=== PATIENT | male | born 1995 | race Caucasian/White ===

== ENCOUNTER 2021-08-21 10:29 | Emergency (ER) | payer OTHER ==
[~2021-08-21] VITALS: Ht 172.7 cm; Wt 87.1 kg
[~2021-08-21 10:29] MED LIST: ASPI-1856 PO; [UNRECOGNIZED DRUG - CODE] PO
[2021-08-21 10:35] VITALS: BP 160/87
--- NOTE | 2021-08-21 10:39 | NUR ---
PT TAKEN TO [facility]
--- NOTE | 2021-08-21 10:43 | NUR ---
26 Y/O MALE C/O LEFT ARM PAIN 03/23 DESCRIBES ACHING RADIATES TO HAND WITH SPASMS, PARETHESIAS. PT STATES HE TOOK TYNENOL PRIOR TO ARRIVAL WITH SOME RELIEF. DENIES TRAUMA/INJURY. DENIES N/V, DENIES FEVER/CHILLS. PMH: AFIB, NAHOMI NKA
--- NOTE | 2021-08-21 10:53 | NUR ---
DR. VICTOR AT PT BEDSIDE FOR FURTHER EVALUATION.
[2021-08-21] MEDS ORDERED: CYCL-711 PO (11:47)
[2021-08-21] MEDS ORDERED: NAPR-54 PO (11:47)
[2021-08-21 11:58] VITALS: BP 160/87
--- NOTE | 2021-08-21 11:58 | NUR ---
Patient discharged with v/s stable. Written and verbal after care instructions ABOUT SHOULDER SPRAIN given and explained. Patient alert, oriented and verbalized understanding of instructions. Ambulatory with steady gait. All questions addressed prior to discharge. ID band removed. Patient advised to follow up with PMD. Rx of FLEXERIL AND NAPROSYN given.
== END 2021-08-21 11:58 | disposition home or self-care (01) ==
LOC: MED 10:29
DX: S43.422A Sprain of left rotator cuff capsule, initial encounter (principal); I48.91 Unspecified atrial fibrillation; Z79.899 Other long term (current) drug therapy; Z79.82 Long term (current) use of aspirin; X50.0XXA Overexertion from strenuous movement or load, initial encounter; Y92.89 Other specified places as the place of occurrence of the external cause; Y93.89 Activity, other specified; Y99.8 Other external cause status
CPT/HCPCS: 73030; 99283

== ENCOUNTER 2021-08-24 06:42 | Inpatient (IN) | payer OTHER ==
[~2021-08-24] VITALS: Ht 172.7 cm; Wt 87.1 kg
[~2021-08-24 06:42] MED LIST changes: +CYCL-711 PO; +NAPR-54 PO
[2021-08-24 06:45] VITALS: BP 132/102
--- NOTE | 2021-08-24 06:49 | NUR ---
ERMD DMITRY AT BEDSIDE.
--- NOTE | 2021-08-24 06:49 | NUR ---
PT TAKEN TO ER BED 11
--- NOTE | 2021-08-24 07:00 | NUR ---
RECEIVED IN BED 11 WITH C/O PALPITATIONS [id number]. HX OF A-FIB, HAS SIMILAR SYMPTOMS TODAY. 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
--- NOTE | 2021-08-24 07:04 | NUR ---
PT RESTING IN BED, VISIBLE EQUAL RISE AND FALL OF CHEST PT A&OX4. PER MD VERBAL ORDER FOR CARDIZEM 25MG IVP STAT. TY, RN AT PT BEDSIDE GIVING AT THIS TIME, WILL CONTINUE TO MONITOR.
[2021-08-24] MEDS ORDERED: LORazepam 2 MG/ML VIAL IVP ONE (07:05)
[2021-08-24] MEDS ORDERED: DILTIAZEM 25 MG/5 ML VIAL IVP ONE ×2 (07:05→07:35)
[2021-08-24] MEDS ORDERED: NACL 0.9% 1,000 ML IV ONE (07:05)
--- NOTE | 2021-08-24 07:09 | NUR ---
RECEIVED REPORT FROM EDER RICHARDSON. TRANSFER OF CARE AT THIS TIME.
--- NOTE | 2021-08-24 07:09 | NUR ---
RECEIVED REPORT FROM EDER RICHARDSON. TRANSFER OF CARE AT THIS TIME.
--- NOTE | 2021-08-24 07:14 | NUR ---
XRAY AT BEDSIDE
--- NOTE | 2021-08-24 07:54 | NUR ---
PT RESTING IN BED, HOB ELEVATED, PER MD VERBAL ORDER FOR CARDIZEM 30MG IVP STAT TY, RN AT PT BEDSIDE GIVING AT THIS TIME, WILL CONTINUE TO MONITOR.
[2021-08-24] MEDS ORDERED: ENOXAPARIN 80 MG/0.8 ML SYR SUBQ ONE (08:15)
[2021-08-24] MEDS ORDERED: DILTIAZEM 125 MG in DEXTROSE 5% 100 ML IV ONE (08:15)
--- NOTE | 2021-08-24 08:25 | NUR ---
BLOOD DRAWN AND SENT TO LABS
[2021-08-24 08:31] LABS: BASOPHILS # (AUTO) 0.1 K/uL (0.00-0.22); BASOPHILS % (AUTO) 0.6 % (0.0-2.0); EOSINOPHILS # (AUTO) 0.1 K/uL (0-0.4); EOSINOPHILS % (AUTO) 1.4 % (0.0-4.0); HEMATOCRIT 41.7 % (36-52); HEMOGLOBIN 14.4 g/dL (12.0-18.0); LYMPHOCYTES # (AUTO) 2.3 K/uL (2.0-11.5); LYMPHOCYTES % (AUTO) 29.1 % (20.5-51.1); MEAN CORPUSCULAR HEMOGLOBIN 29 pg (27-31); MEAN CORPUSCULAR HGB CONC 35 g/dL (33-37); MEAN CORPUSCULAR VOLUME 85.2 fL (80-94); MONOCYTES # (AUTO) 0.5 K/uL (0.8-1.0); MONOCYTES % (AUTO) 6.8 % (1.7-9.3); NEUTROPHILS % (AUTO) 62.1 % (42.2-75.2); PLATELET COUNT (AUTO) 203 K/uL (140-450); RED CELL DISTRIBUTION WIDTH 13.8 % (11.6-13.7)
[2021-08-24 08:38] LABS: ANION GAP 15.7 (8-16); CARBON DIOXIDE 24.3 mmol/L (21-32); CREATININE 0.9 mg/dL (0.6-1.3)
[2021-08-24 08:52] LABS: ALBUMIN 3.9 g/dL (3.4-5.0); MAGNESIUM 1.9 mg/dL (1.8-2.4); THYROID STIMULATING HORMONE 0.79 uIU/mL (0.34-3.74); TOTAL BILIRUBIN 0.6 mg/dL (0.0-1.0)
[2021-08-24] MEDS ORDERED: POTASSIUM CHLORIDE 10 MEQ TABER PO ONE (08:55)
--- NOTE | 2021-08-24 10:39 | NUR ---
DR. LR AT PT BEDSIDE FOR FURTHER EVALUATION.
[2021-08-24] MEDS ORDERED: ACETAMINOPHEN 325 MG TAB PO PRN (11:45)
[2021-08-24] MEDS ORDERED: MORPHINE SULFATE 4 MG/ML SYR IVP PRN (11:45)
[2021-08-24] MEDS ORDERED: MAGNESIUM OXIDE 400 MG TAB PO PRN (11:45)
[2021-08-24] MEDS ORDERED: POTASSIUM CHLORIDE 10 MEQ TABER PO PRN (11:45)
[2021-08-24] MEDS ORDERED: ONDANSETRON 4 MG/2 ML VIAL IVP PRN (11:45)
[2021-08-24] MEDS ORDERED: HYDROcodone/APAP 5/325 MG 1 TAB TAB PO PRN (11:45)
[2021-08-24] MEDS: NACL 0.9% 1,000 ML IV SCH (12:01)
[2021-08-24] MEDS ORDERED: IMIP75CA PO (12:03)
--- NOTE | 2021-08-24 13:30 | NUR ---
Patient will be admitted to care of DR. LEAHY. Admited to ICU. Will go to room 2. Belongings list completed. Report to EDER HALL.
--- NOTE | 2021-08-24 14:00 | NUR ---
PT ARRIVED IN UNIT VIA GURNEY, PT AMBULATED TO BED, TOLERATED WELL, PT AWAKE ALERT ORIENTED X4, SPEAKS KHMER. ON ROOM AIR, NO SOB NOTED, IV TO R AC 20G PATENT INTACT, INFUSING CARDIZEM DRIP @ 20 MG/HR, NS @ 80ML/HR, INFUSING WELL, INITIAL ASSESSMENT DONE, ALL SAFETY PRECAUTION MET, MRSA SWAB TAKEN, ORIENT PT TO BED, ROOM AND CALL LIGHT, PT STATED UNDERSTANDING, WILL CONTINUE TO MONITOR.
[2021-08-24 14:10] VITALS: BP 124/74
[2021-08-24 15:00] VITALS: BP 117/72
--- NOTE | 2021-08-24 15:19 | NUR ---
DR DEXTER AT BEDSIDE, PER DR DEXTER SINCE PT IS ALREADY ON SINUS RHYTHM TO STOP CARDIZEM DRIP. WILL CONTINUE WITH ORDERS.
[2021-08-24 16:00] VITALS: BP 125/70
[2021-08-24] MEDS ORDERED: POTASSIUM CHLORIDE 10 MEQ TABER PO SCH (16:00)
--- NOTE | 2021-08-24 19:10 | NUR ---
Received report from DARYL Chandler TIRE FIXER, all question answered.
--- NOTE | 2021-08-24 19:15 | NUR ---
ENDORSED PT TO CAUSTIC PUMP OPERATOR NURSE RICK GAINES FOR CONTINUOUS OF CARE.
[2021-08-24 20:00] VITALS: BP 115/67
[2021-08-24 22:00] VITALS: BP 119/66
[2021-08-25] MEDS: NACL 0.9% 1,000 ML IV SCH (00:26)
--- NOTE | 2021-08-25 00:42 | NUR ---
Transfer pt. to TELE Rm# 106B via Wheelchair. Report given to COSME Gipson RN. All questions answered.
--- NOTE | 2021-08-25 00:48 | NUR ---
Patient was taken to TELE Rm#[id number] via Wheelchair by Radha, equipment operator/laborer/supervisor.
[2021-08-25 04:00] VITALS: BP 104/66
[2021-08-25 06:19] LABS: BASOPHILS # (AUTO) 0.1 K/uL (0.00-0.22); BASOPHILS % (AUTO) 0.8 % (0.0-2.0); EOSINOPHILS # (AUTO) 0.2 K/uL (0-0.4); EOSINOPHILS % (AUTO) 1.9 % (0.0-4.0); HEMATOCRIT 41.4 % (36-52); HEMOGLOBIN 13.9 g/dL (12.0-18.0); LYMPHOCYTES # (AUTO) 3.5 K/uL (2.0-11.5); LYMPHOCYTES % (AUTO) 45.5 % (20.5-51.1); MEAN CORPUSCULAR HEMOGLOBIN 29 pg (27-31); MEAN CORPUSCULAR HGB CONC 34 g/dL (33-37); MEAN CORPUSCULAR VOLUME 85.8 fL (80-94); MONOCYTES # (AUTO) 0.7 K/uL (0.8-1.0); MONOCYTES % (AUTO) 8.5 % (1.7-9.3); NEUTROPHILS # (AUTO) 3.4 K/uL (1.8-7.7); NEUTROPHILS % (AUTO) 43.3 % (42.2-75.2); PLATELET COUNT (AUTO) 225 K/uL (140-450); RED BLOOD CELL COUNT(AUTO) 4.82 MIL/uL (4.20-6.10); RED CELL DISTRIBUTION WIDTH 13.8 % (11.6-13.7); WHITE BLOOD COUNT (AUTO) 7.8 K/uL (4.8-10.8)
[2021-08-25 06:32] LABS: ANION GAP 12.3 (8-16); CARBON DIOXIDE 26.4 mmol/L (21-32); CREATININE 0.9 mg/dL (0.6-1.3); POTASSIUM 3.7 mmol/L (3.5-5.1)
[2021-08-25] MEDS ORDERED: ASPI-1856 PO (07:32)
[2021-08-25] MEDS ORDERED: FLEC50TA PO (07:32)
--- NOTE | 2021-08-25 07:54 | NUR ---
Received pt form ICU last night around 0100. Upon getting on the unit, he did complain of a headache. Tylenol was administered. He has been feeling better since then. Care has been endorsed to AM RN.
[2021-08-25 08:00] VITALS: BP 101/65
--- NOTE | 2021-08-25 08:00 | NUR ---
RECEIVED REPORT FROM TUBULAR SPLITTING MACHINE TENDER FOR CONTINUITY OF CARE. PATIENT IS ALERT AWAKE ORIENTED X4, NOT IN ANY DISTRESS NOTED. WITH IVF ON GOING AND INFUSING WELL. ON MONITOR SHOWS SR. DENIES CHEST PAIN. SEEN BY DR. LEAHY AND DISCUSSED THE PLAN OF CARE. WILL CONTINUE TO MONITOR.
[2021-08-25] MEDS ORDERED: POTASSIUM CHLORIDE 10 MEQ TABER PO SCH (09:00)
[2021-08-25] MEDS ORDERED: COMMUNICATION ORDER MC SCH (09:00)
[2021-08-25] MEDS ORDERED: ECOTRIN 81 MG TABEC PO SCH (09:00)
[2021-08-25 12:00] VITALS: BP 110/68
--- NOTE | 2021-08-25 12:31 | NUR ---
DR. LEAHY CALLED AND HE SAID HE SPOKE TO DR. DEXTER AND CLEARED PATIENT FROM CARDIAC STANDPOIN. HE SAID TO DC PATIENT TODAY.
[2021-08-25] MEDS ORDERED: FLECAINIDE 50 MG PO SCH (12:56)
[2021-08-25] MEDS ORDERED: FLU VACCINE QS2021-22 0.5 ML SYR IMVAC ONE (13:10)
[2021-08-25] MEDS ORDERED: FLU VACCINE QS2020-21 0.5 ML SYR IMVAC PRN (13:10)
--- NOTE | 2021-08-25 14:00 | NUR ---
DISCHARGE PATIENT TO HOME AMBULATORY, DISCHARGE INSTRUCTION GIVEN AND VERBALIZED UNDERSTANDING. UIN STABLE CONDITION.
== END 2021-08-25 14:00 | disposition home or self-care (01) | DRG 201 ==
LOC: MED 06:42 → MTU 11:43 → MIC 13:41 → MTU 08-25 00:48
PROVIDERS: ADMIT Student in an Organized Health Care Education/Training Program; ATTEND Student in an Organized Health Care Education/Training Program
DX: I48.0 Paroxysmal atrial fibrillation (principal); F41.9 Anxiety disorder, unspecified; I48.92 Unspecified atrial flutter; Z79.82 Long term (current) use of aspirin; Z79.899 Other long term (current) drug therapy
CPT/HCPCS: 36415; 71045; 80048; 80053; 83735; 84443; 84484; 85025; 87081; 93005; 96361; 96372; 96374; 96376; 99291; J1644; J1650; J2060; J3490; J7060; Q0092